=== PATIENT | male | born 1980 | race African-American/Black ===

== ENCOUNTER 2024-05-14 10:26 | Emergency (ER) | payer OTHER, SELFPAY ==
[2024-05-14 10:33] VITALS: BP 156/96; PULSE 77; RESP 18; TEMP 36.4; O2SAT 99; BMI 32.5
--- NOTE | 2024-05-14 11:14 | ED.BACK ---
HPI - Back Pain/Injury General Chief Complaint: Back Pain/Injury Stated Complaint: back pain Time Seen by Provider: 05/14/24 10:58 Source: patient Mode of arrival: Ambulatory History of Present Illness HPI Narrative: Patient is an otherwise healthy 43-year-old male here for evaluation of right lower back discomfort that is radiating down his right leg. He states it has occurred this morning when he rolled out of bed. No specific trauma. No activities with the past couple days that would caused him to have discomfort like this. Denies fevers. No urinary symptoms. No saddle anesthesia. No change in bowel habits. Has not tried anything for symptoms prior to arrival. Has never had back pain like this. Related Data Previous Rx's Medication Instructions Recorded cyclobenzaprine 10 mg tablet 10 mg PO TID PRN muscle spasm #20 05/14/24 tabs hydrocodone 5 mg-acetaminophen 325 1 tab PO Q8H PRN pain #10 tabs 05/14/24 mg tablet meloxicam 15 mg tablet 15 mg PO DAILY #30 tabs 05/14/24 Allergies Allergy/AdvReac Type Severity Reaction Status Date / Time No Known Drug Allergies Allergy Verified 05/14/24 10:33 Review of Systems Review of Systems Narrative: See HPI Patient History Social History Smoking Status: Never smoker Smoking Status: Never smoker alcohol intake frequency: other Substance Use Type: does not use Exam Initial Vital Signs Initial Vital Signs: Vital Signs Temperature 97.5 F L 05/14/24 10:33 Pulse Rate 77 05/14/24 10:33 Respiratory Rate 18 05/14/24 10:33 Blood Pressure 156/96 H 05/14/24 10:33 Pulse Oximetry 99 05/14/24 10:33 Oxygen Delivery Method Room Air 05/14/24 10:33 Const General: cooperative and comfortable GI Inspection: normal to inspection Back/Spine/Pelvis Back: normal to inspection and No CVA tenderness Thoracic/Lumbar Spine: paraspinal tenderness and No lumbar spinal tenderness Skin General: no rashes or lesions noted Neuro General: patient alert, patient awake and moves all extremities Course Orders Ordered: Discontinued Medications Hydromorphone HCl (Hydromorphone 1 Mg Inj) 1 mg IM NOW ONE Stop: 05/14/24 11:16 Ketorolac Tromethamine (Ketorolac 30 Mg/Ml Vial) 60 mg IM NOW ONE Stop: 05/14/24 11:16 Vital Signs Vital signs: Vital Signs - 8 hr 05/14/24 10:33 Temperature 97.5 F L Pulse Rate 77 Respiratory Rate 18 Blood Pressure 156/96 H Pulse Oximetry 99 Oxygen Delivery Method Room Air MDM - Back Pain/Injury MDM Narrative Medical decision making narrative: Low suspicion for cauda equina. Low suspicion for fracture. No indication for imaging studies today. No indication that this is an infectious process. Will discharge patient home on symptom treatment. He was given return precautions. He expressed understanding and agreement with plan. Discharge Plan Departure Patient Disposition: Home Clinical Impression: Strain of lumbar region Instructions: DI for Low Back Pain Activity Restrictions/Additional Instructions: Try to stay as active as possible. Continue with conservative measures such as heat and ice and massage. Take the medications as needed. Contact your medical department for follow-up. Return to the emergency department for new or worsening symptoms. Prescriptions: New cyclobenzaprine 10 mg tablet 10 mg PO TID PRN (Reason: muscle spasm) Qty: 20 0RF meloxicam 15 mg tablet 15 mg PO DAILY Qty: 30 0RF hydrocodone-acetaminophen 5-325 mg tablet 1 tab PO Q8H PRN (Reason: pain) Qty: 10 0RF Stand Alone Forms: Patient Portal/API, Work Release Note
[2024-05-14] MEDS: KETOROLAC 30 MG/ML VIAL 60 MG IM (11:22)
[2024-05-14] MEDS: HYDROMORPHONE 1 MG INJ IM (11:24)
== END 2024-05-14 11:42 | disposition home or self-care (01) ==
PROVIDERS: Emergency Provider Emergency Medicine
DX: S39.012A Strain of muscle, fascia and tendon of lower back, initial encounter (principal); X58.XXXA Exposure to other specified factors, initial encounter
CPT/HCPCS: 96372; 99283; J1170; J1885